=== PATIENT | female | born 1985 | race Caucasian/White ===

== ENCOUNTER 2022-05-31 09:11 | Inpatient (IN) | payer OTHER ==
[2022-05-31] VITALS (34 sets, daily range): BP systolic 108–168; BP diastolic 55–90
[~2022-05-31] VITALS: Ht 162.6 cm; Wt 77.8 kg
[2022-05-31] MEDS ORDERED: VALT500T PO (12:44)
[2022-05-31] MEDS ORDERED: PRENTAB9 PO (12:44)
[2022-05-31] MEDS ORDERED: HOME MED LIST COMPLETE! XX SCH (12:50)
[2022-05-31] MEDS ORDERED: LACTATED RINGER'S 1000 ML IV STA (14:08)
[2022-05-31] MEDS ORDERED: LR 1,000 ML IV SCH ×2 (14:10)
[2022-05-31] MEDS ORDERED: METHYLERGONOVINE MALEATE 0.2MG/ML 1ML VIAL IM PRN (14:10)
[2022-05-31] MEDS ORDERED: OXYTOCIN INJ 10UNITS/ML 1ML VIAL IM PRN (14:10)
[2022-05-31] MEDS ORDERED: OXYTOCIN DRIP 30 UNITS in IV 1 EA IV PRN ×6 (14:10)
[2022-05-31] MEDS ORDERED: OXYTOCIN DRIP 30 UNITS in IV 1 EA IV SCH (14:10)
[2022-05-31] MEDS ORDERED: CARBOPROST TROMETHAMINE 250 MCG/ML AMP IM PRN (14:10)
[2022-05-31] MEDS ORDERED: LIDOCAINE 1% MDV 20ML VIAL INFIL PRN (14:10)
[2022-05-31] MEDS ORDERED: TRANEXAMIC ACID INJection 1,000 MG in NS 100 ML IV PRN (14:10)
[2022-05-31] MEDS ORDERED: OXYTOCIN INJ 10UNITS/ML 1ML VIAL IV PRN (14:10)
[2022-05-31 15:19] LABS: HEMATOCRIT 29.8 % (36.0-47.0); HEMOGLOBIN 9.5 g/dl (12.0-15.5); MEAN CORPUSCULAR HEMOGLOBIN 22.7 pg (27.0-33.0); MEAN CORPUSCULAR HGB CONC 31.9 g/dl (32.0-36.5); MEAN CORPUSCULAR VOLUME 71.3 fl (80.0-96.0); PLATELET COUNT, AUTOMATED 232 10^3/uL (150-450); RED BLOOD COUNT 4.18 10^6/uL (4.00-5.40); WHITE BLOOD COUNT 13.3 10^3/uL (4.0-10.0)
[2022-05-31] MEDS ORDERED: EPIDURAL/PCA KEYS XX PRN (17:30)
[2022-05-31] MEDS ORDERED: diphenhydrAMINE 50MG/ML VIAL IV PRN (17:30)
[2022-05-31] MEDS ORDERED: LR 500 ML IV PRN (17:30)
[2022-05-31] MEDS ORDERED: FENTANYL/ROPIVACAINE/NACL BAG 100 ML EPIDURAL SCH (17:30)
[2022-05-31] MEDS ORDERED: NALOXONE INJ 0.4MG/1ML VIAL IV PRN (17:30)
[2022-05-31] MEDS ORDERED: ONDANSETRON 4MG 2ML VIAL IV PRN (17:30)
[2022-05-31] MEDS: ePHEDrine SULFATE 25 MG/5 ML(5MG/ML) SYRINGE IVP PRN ×3 (18:22→18:56)
[2022-05-31] MEDS ORDERED: DOCUSATE SODIUM 100MG CAPSULE PO PRN (20:10)
[2022-05-31] MEDS ORDERED: RHOGAM 300MCG (1500IU) INJ IM SCH (20:10)
[2022-05-31] MEDS ORDERED: MOM 30ML SUSPENSION UDC PO PRN (20:10)
[2022-05-31] MEDS ORDERED: DIBUCAINE 1% OINTMENT 30GM TOP PRN (20:10)
[2022-05-31 20:24] LABS: CORD GAS HCO3 A 22.3 MEQ/L; CORD GAS O2 SAT A 49.9 %; CORD GAS PCO2 A 44.9 mmHg; CORD GAS PH A 7.314 UNITS; CORD GAS PO2 A 21.7 mmHg; CORD GAS TCO2 A 23.7 MEQ/L
[2022-05-31 20:27] LABS: CORD GAS ABE V -3.1; CORD GAS HCO3 V 23.5 MEQ/L; CORD GAS O2 SAT V 47.8 %; CORD GAS PCO2 V 47.3 mmHg; CORD GAS PH V 7.314 UNITS; CORD GAS PO2 V 20.8 mmHg; CORD GAS SBC V 20.6 MEQ/L; CORD GAS TCO2 V 24.9 MEQ/L
[2022-05-31] MEDS: ACETAMINOPHEN 500 MG TAB PO PRN (21:11)
[2022-05-31] MEDS: IBUPROFEN 800 MG TAB PO PRN (21:11)
[2022-06-01] MEDS: IBUPROFEN 800 MG TAB PO PRN ×3 (05:38→23:17)
[2022-06-01 06:00] VITALS: BP 92/51
[2022-06-01] MEDS: PRENATAL VITAMINS CHEWABLE TABLET PO SCH (07:44)
[2022-06-01] MEDS: ACETAMINOPHEN 500 MG TAB PO PRN ×2 (07:59→19:28)
[2022-06-01] MEDS: CETIRIZINE (ZyrTEC) 10 MG TAB PO SCH (11:09)
[2022-06-01] MEDS: OXYMETAZOLINE 0.05% NASAL SPRAY (AFRIN) PRN (17:07)
[2022-06-01 18:00] VITALS: BP 119/67
[2022-06-01] MEDS: PSEUDOEPHEDRINE 30 MG TAB PO PRN (18:03)
[2022-06-02] MEDS ORDERED: oxyCODONE 5MG TAB PO PRN (01:00)
[2022-06-02] MEDS: PSEUDOEPHEDRINE 30 MG TAB PO PRN ×2 (01:41→07:51)
[2022-06-02 05:27] VITALS: BP 99/53
[2022-06-02] MEDS: PRENATAL VITAMINS CHEWABLE TABLET PO SCH (07:52)
[2022-06-02] MEDS: IBUPROFEN 800 MG TAB PO PRN (07:53)
[2022-06-02] MEDS: CETIRIZINE (ZyrTEC) 10 MG TAB PO SCH (07:54)
[2022-06-02] MEDS: OXYMETAZOLINE 0.05% NASAL SPRAY (AFRIN) PRN (07:54)
[2022-06-02] MEDS ORDERED: MEASLES,MUMPS,RUBELLA VACCINE INJ (MMR-II) SC.IMMUN ONE (09:00)
== END 2022-06-02 13:08 | disposition home or self-care (01) | DRG 807 ==
LOC: M LDI 12:04 → M OBS 22:10
PROVIDERS: ADMIT Obstetrics & Gynecology; ATTEND Obstetrics & Gynecology
PROC: 10E0XZZ Delivery of Products of Conception, External Approach (ICD-10-PCS; principal; 2022-05-31)
PROC: 0HQ9XZZ Repair Perineum Skin, External Approach (ICD-10-PCS; 2022-05-31)
PROC: 3E033VJ Introduction of Other Hormone into Peripheral Vein, Percutaneous Approach (ICD-10-PCS; 2022-05-31)
DX: O26.03 Excessive weight gain in pregnancy, third trimester (principal); Z37.0 Single live birth; O09.523 Supervision of elderly multigravida, third trimester; Z3A.39 39 weeks gestation of pregnancy; O69.81X0 Labor and delivery complicated by cord around neck, without compression, not applicable or unspecified; O69.82X0 Labor and delivery complicated by other cord entanglement, without compression, not applicable or unspecified; O70.0 First degree perineal laceration during delivery